=== PATIENT | female | born 1985 ===

== ENCOUNTER 2017-11-30 04:08 | Inpatient (IN) | payer BC ==
[2017-11-30] MEDS ORDERED: Sodium Chloride 0.9% 10 ML Syringe FLUSH PRN (04:26)
[2017-11-30] MEDS ORDERED: Nalbuphine 20 MG/ML 1 ML Syringe IVPUSH PRN (04:26)
[2017-11-30] MEDS ORDERED: Oxytocin/Lactated Ringers 10 UNIT/1,000 ML BAG IV SCH ×2 (04:30→07:30)
[2017-11-30] MEDS: Lactated Ringers 1,000 ML IV SCH ×3 (04:35→06:33)
[2017-11-30] MEDS ORDERED: Ondansetron 4 MG/2 ML SDV IVPUSH PRN (04:57)
[2017-11-30] MEDS ORDERED: ePHEDrine 50 MG/ML SDV IVPUSH PRN (04:57)
[2017-11-30] MEDS ORDERED: diphenhydrAMINE 50 MG/ML SDV IVPUSH PRN (04:57)
[2017-11-30] MEDS ORDERED: fentaNYL 100 MCG/2 ML SDV EPIDUR PRN (04:57)
[2017-11-30] MEDS ORDERED: Bupivacaine/fentaNYL/NS 100 ML Bag EPIDUR SCH (05:00)
--- NOTE | 2017-11-30 05:36 | PCM.PREANE ---
Preanesthetic Assessment - Anesthesia/Transfusion/Family Hx Anesthesia History: Prior Anesthesia Without Reaction Family History of Anesthesia Reaction: No - Review of Systems General: No Symptoms Pulmonary: No Symptoms Cardiovascular: No Symptoms Gastrointestinal: No Symptoms Neurological: No Symptoms Other: Reports: None - Physical Assessment Pulse: 86 O2 Sat by Pulse Oximetry: 98 Respiratory Rate: 22 Blood Pressure: 122/78 Temperature: 36.3 C Weight: 76.204 kg ASA Class: 2 Mental Status: Alert & Oriented x3 Airway Class: Mallampati = 1 Dentition: Reports: Normal Dentition Thyro-Mental Finger Breadths: 3 Mouth Opening Finger Breadths: 3 ROM/Head Extension: Full Lungs: Clear to Auscultation, Normal Respiratory Effort Cardiovascular: Regular Rate, Regular Rhythm - Lab Values: Laboratory Last Values WBC 11.14 K/mm3 (3.98-10.04) H 11/30/17 04:40 RBC 4.43 M/mm3 (3.98-5.22) 11/30/17 04:40 Hgb 12.1 gm/L (11.2-15.7) 11/30/17 04:40 Hct 36.1 % (34.1-44.9) 11/30/17 04:40 MCV 81.5 fl (79.4-94.8) 11/30/17 04:40 MCH 27.3 pg (25.6-32.2) 11/30/17 04:40 MCHC 33.5 g/dl (32.2-35.5) 11/30/17 04:40 RDW Std Deviation 47.2 fL (36.4-46.3) H 11/30/17 04:40 Plt Count 310 K/mm3 (182-369) 11/30/17 04:40 MPV 8.7 fl (9.4-12.3) L 11/30/17 04:40 Neut % (Auto) 68.9 % (34.0-71.1) 11/30/17 04:40 Lymph % (Auto) 22.4 % (19.3-51.7) 11/30/17 04:40 [place] % (Auto) 7.7 % (4.7-12.5) 11/30/17 04:40 Eos % (Auto) 0.4 (0.7-5.8) L 11/30/17 04:40 Baso % (Auto) 0.2 % (0.1-1.2) 11/30/17 04:40 Neut # (Auto) 7.66 K/mm3 (1.56-6.13) H 11/30/17 04:40 Lymph # (Auto) 2.50 K/mm3 (1.18-3.74) 11/30/17 04:40 [place] # (Auto) 0.86 K/mm3 (0.24-0.36) H 11/30/17 04:40 Eos # (Auto) 0.05 K/mm3 (0.04-0.36) 11/30/17 04:40 Baso # (Auto) 0.02 K/mm3 (0.01-0.08) 11/30/17 04:40 - Allergies Allergies/Adverse Reactions: Allergies Allergy/AdvReac Type Severity Reaction Status Date / Time No Known Allergies Allergy Verified 12/30/14 08:11 - Acknowledgements Anesthesia Type Planned: Epidural Pt an Appropriate Candidate for the Planned Anesthesia: Yes Alternatives and Risks of Anesthesia Discussed w Pt/Guardian: Yes Pt/Guardian Understands and Agrees with Anesthesia Plan: Yes PreAnesthesia Questionnaire - Past Health History Medical/Surgical History: Denies Medical/Surgical History - HOME MEDS Home Medications: Home Meds Ferrous Sulfate [Slow Fe] 1 tab PO DAILY 12/30/14 [History] PNV #56/Iron Carb&Aspg/FA/DHA [Ob Complete Petite Softgel] 1 each PO DAILY 12/30 [History] Ibuprofen [Motrin] 600 mg PO Q4H PRN #30 tablet 01/01/15 [Rx] Lanolin [Lansinoh HPA] 1 applic TOP ASDIRECTED PRN #30 tube 01/01/15 [Rx] - CURRENT (IN HOUSE) MEDS Current Meds: Current Medications Diphenhydramine HCl (Benadryl) 25 mg IVPUSH Q6H PRN PRN Reason: Pruritis Ephedrine Sulfate (Ephedrine Sulfate) 5 mg IVPUSH ASDIRECTED PRN PRN Reason: Hypotension Fentanyl (Sublimaze) 100 mcg EPIDUR ONETIME PRN PRN Reason: Pain Last Admin: 11/30/17 05:31 Dose: 100 mcg Fentanyl/Bupivacaine HCl (Fentanyl/Bupivacaine/Ns 2 Mcg-0.125% 100 Ml) 100 ml EPIDUR ASDIRECTED NEDA Lactated Ringer's (Ringers, Lactated) 1,000 mls @ 100 mls/hr IV ASDIRECTED [facility] Last Admin: 11/30/17 04:35 Dose: 999 mls/hr Oxytocin/Lactated Ringer's (Pitocin In Lr 10 Units/1,000 Ml) 10 unit in 1,000 mls @ 500 mls/hr IV .CONTINUOUS NEDA Nalbuphine HCl (Nubain) 10 mg IVPUSH Q2H PRN PRN Reason: pain Ondansetron HCl (Zofran) 4 mg IVPUSH ONETIME PRN PRN Reason: Nausea/Vomiting Sodium Chloride (Saline Flush) 10 ml FLUSH ASDIRECTED PRN PRN Reason: Keep Vein Open
[2017-11-30] MEDS ORDERED: Lanolin 100% Cream 7 GM Tube TOP PRN (07:35)
[2017-11-30] MEDS ORDERED: Acetaminophen 325 MG Tab PO PRN (07:35)
[2017-11-30] MEDS ORDERED: Benzocaine/Menthol 20%-0.5% Spray 56 GM Canister TOP PRN (07:35)
[2017-11-30] MEDS ORDERED: Witch Hazel Medicated Pads 100/Jar TOP PRN (07:35)
[2017-11-30] MEDS ORDERED: Docusate Sodium 100 MG Cap PO PRN (07:35)
--- NOTE | 2017-11-30 07:39 | PCM.SN ---
- Free Text/Narrative Note: Tri is a 31-year-old 6 now para 4024 white female presented in active labor on the morning of 11/30/2017. Upon arrival she was 6 and is dilated and rapidly progressed to complete. During placed for labor and analgesia. She pushed approximately 4 contractions and delivered a viable, dee, female with Apgars of 8 and 9 in an occiput anterior position. There was nuchal cord 2 which was loosed and both loops were reduced over the baby's head. The baby was placed on mom's abdomen. She was dried and bulb suctioned. Cord was eventually clamped 2 and cut by the baby's father. Cord blood was obtained. Pitocin was started immediately after delivery the baby to facilitate increase in uterine tone and decrease likelihood of bleeding. Placenta delivered in a Rice presentation, appeared intact and complete and was discarded per patient desire. The second-degree perineal laceration which had occurred with delivery was repaired with 3-0 Monocryl in a routine fashion. Estimated blood loss was 100 mL. Patient plans to breast-feed. Condition: Good
--- NOTE | 2017-11-30 08:12 | HP ---
DATE OF ADMISSION: 11/30/2017 ADMISSION DIAGNOSIS: A 40 and 5/7th week intrauterine , active labor, advanced cervical dilation. HISTORY OF PRESENT ILLNESS: The patient is a 31-year-old 6, para 3-0-2-3 white female, who was admitted in active labor at 6 cm and has progressed to 9 cm at this time. She was due on 11/25/2017, placing her at 40 and 5/7th weeks gestational age. Her due date was determined by a certain last menstrual period starting on 02/18/2017 and supported by 2 ultrasounds on 05/02/2017 and 07/21/2017. 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 The patient has had menarche at age 12. Cycles every 28 to 30 days and regular. Last menstrual period 02/18/2017 was definite and the patient was not using any control at the time of conception. PAST OBSTETRIC HISTORY: Includes the followin. Miscarriage in 2009 at 6 weeks gestational age. 2. Female infant born on [birth year]2010 at 41 weeks' gestational age after 14 hours of labor - 6 pounds 6 ounces - [facility] - child's name is Casandra. 3. Miscarriage in July 2011 at 8 weeks gestational age. 4. Male born on 05/07/2012 at 38 weeks gestational age after 9 hours of labor - 7 pounds 2 ounces - normal spontaneous vaginal delivery - child's name is Matthew. 5. Female born on [birth year]/30/2014 at 39 and 4/7th weeks gestational age after 12 hours of labor - 7 pounds 3 ounces - - child's name is Agapito Moran. course has been relatively unremarkable. The patient lives in [place] and has been staying in [facility] for the last week. She declined genetic evaluation. She desires epidural in Labor and Delivery. She is group B Strep negative. Induction set up for 12/02/2017 at 0700 hours. She had a normal 1- hour GTT. She plans to breastfeed. The patient was seen for first visit on 05/02/2017 at 10 and 3/7th weeks. She had regular visits during the course of her care. She made normal fundal height growth. Her vital signs were stable throughout the course. Her weight gain was from approximately 122 pounds to 167 pounds for 43-pound weight gain. LABORATORY TESTING: In , shows her blood to be A positive. Antibody screen is negative. Hemoglobin at first visit was 12.9 and platelets were 330,000. She is rubella immune. RPR is nonreactive. Urine culture was negative. Hepatitis B surface antigen and HIV assays were both negative. Gonorrhea and chlamydia were both negative. Her second trimester hemoglobin was low at 10.0 g/dL and platelets were 327,000. Her 1-hour GTT was normal at 122. Group B Strep screen was negative. ALLERGIES: None. CURRENT MEDICATIONS: 1. vitamins 1 daily. 2. Ferrous sulfate 325 mg p.o. twice a day daily. PAST MEDICAL HISTORY: 1. Miscarriage x2. 2. Vaginal delivery x3. PAST SURGICAL HISTORY: [place] teeth extraction in 2006. FAMILY HISTORY: Mother from congestive heart failure at age 45. Father has ALS. He was diagnosed in 2010 and is doing well. One brother is alive and well. Maternal grandmother is secondary to heart failure. Maternal grandfather secondary to kidney failure. Paternal grandmother is alive and healthy, but has obesity. Paternal grandfather is alive and well. SOCIAL HISTORY: The patient is . is Raj Robles. 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 They live in [place], [place]. She does not use any significant amounts of alcohol, drugs, or tobacco. REVIEW OF SYSTEMS: GENERAL: The patient has no complaints. She reported good activity. Has had contractions over the last week, but they have been mild until presently. SKIN: Negative. CARDIOVASCULAR: No chest pain or exercise intolerance. RESPIRATORY: No shortness of breath or infectious symptoms. BREASTS: Changes associated with . The patient plans to breastfeed. GI: Negative. : Contractions at present. No other problems noted. EXTREMITIES/MUSCULOSKELETAL: Occasional edema, otherwise unremarkable. NEUROLOGIC: Negative. PHYSICAL EXAMINATION: GENERAL: The patient is a well-developed, well-nourished, pleasant female, stated age, in no acute distress. VITAL SIGNS: On last evaluation in the clinic on 11/29/2017, her blood pressure was 138/72. Weight was 167 pounds with pregravid weight being 122 pounds. Height is 5 feet 3 inches. Pregravid body mass index was 21.6. SKIN: Warm and dry, without lesions. HEENT, NECK and BACK: Within normal limits. LUNGS: Clear with good breath sounds in all lung gonzalez. CARDIOVASCULAR: Regular rate and rhythm without murmurs. BREASTS: Deferred having been normal at the first visit and not repeated at this time. ABDOMEN: Protuberant with with last fundal height at 39 cm. Baby in vertex presentation by Tim maneuvers. CERVIX: As described above. EXTREMITIES AND NEUROLOGIC: Trace edema, otherwise unremarkable. ASSESSMENT: 1. A 40 and 5/7th week intrauterine , active labor, advanced cervical dilation. 2. Group B Strep screen negative. 3. Epidural for pain control. 4. The patient plans to breastfeed. PLAN: 1. Anticipate normal spontaneous vaginal delivery. 2. Epidural for pain control. 3. Support desire. 4. Rubella titer is negative. We will obtain RPR. CBC prior to epidural. MMODAL /[id number]
--- NOTE | 2017-11-30 08:23 | PCM48HPAN ---
Post Anesthesia Note - EVALUATION WITHIN 48HRS OF ANESTHETIC Vital Signs in Normal Range: Yes Patient Participated in Evaluation: Yes Respiratory Function Stable: Yes Airway Patent: Yes Cardiovascular Function Stable: Yes Hydration Status Stable: Yes Pain Control Satisfactory: Yes Nausea and Vomiting Control Satisfactory: Yes Mental Status Recovered: Yes Pulse Rate: 86 Resp Rate: 22 Temperature: 97.4 F Blood Pressure: 122/78
[2017-11-30] MEDS ORDERED: Prenatal Multivitamin with Calcium/Folic Acid/Iron Tab PO SCH (09:00)
[2017-11-30] MEDS ORDERED: Methylergonovine 0.2 MG/1 ML Amp ONE (09:09)
[2017-11-30] MEDS ORDERED: Oxytocin/Lactated Ringers 10 UNIT/1,000 ML BAG IV ONE (10:21)
[2017-11-30] MEDS: Ibuprofen 600 MG Tab PO PRN ×2 (13:58→21:51)
[2017-11-30] MEDS ORDERED: Bupivacaine 0.25% 10 ML SDV ONE (22:00)
[2017-12-01 02:27] VITALS: BP 112/67
[2017-12-01] MEDS: Ibuprofen 600 MG Tab PO PRN ×2 (04:13→07:13)
[2017-12-01] MEDS ORDERED: Ferrous Sulfate 325 MG Tab PO SCH (07:00)
--- NOTE | 2017-12-01 07:12 | PCM.DCSUM1 ---
Discharge Summary - Hospital Course Free Text/Narrative:: Tri is a 31-year-old 6 now para 4024 white female presented in active labor on the morning of 11/30/2017. Upon arrival she was 6 and is dilated and rapidly progressed to complete. During placed for labor and analgesia. She pushed approximately 4 contractions and delivered a viable, dee, female with Apgars of 8 and 9, a weight of grams, ( pounds, ounces), a length of inches in an occiput anterior position. There was nuchal cord 2 which was loosed and both loops were reduced over the baby's head. The baby was placed on mom's abdomen. She was dried and bulb suctioned. Cord was eventually clamped 2 and cut by the baby's father. Cord blood was obtained. Pitocin was started immediately after delivery the baby to facilitate increase in uterine tone and decrease likelihood of bleeding. Placenta delivered in a Rice presentation, appeared intact and complete and was discarded per patient desire. The second-degree perineal laceration which had occurred with delivery was repaired with 3-0 Monocryl in a routine fashion. Estimated blood loss was 100 mL. Patient plans to breast-feed. patient is done well. Normal voiding, lochia, breast-feeding without problems. Baby has a heart murmur and is being transferred to [facility] in [place]. Patient wishes to be discharged. Condition: Good Diagnosis: Stroke: No - Discharge Data Discharge Date: 12/01/17 Discharge Disposition: Home, Self-Care 01 Condition: Good - Patient Instructions Diet: Regular Diet as Tolerated (Nursing diet was increased calories and calcium is recommended) Activity: As Tolerated (No intercourse or tampons until bleeding resolves) Driving: May Drive Today Showering/Bathing: May Shower Notify Provider of: Fever, Increased Pain, Swelling and Redness, Nausea and/or Vomiting - Discharge Plan *PRESCRIPTION DRUG MONITORING PROGRAM REVIEWED*: No *COPY OF PRESCRIPTION DRUG MONITORING REPORT IN PATIENT [place]: No Home Medications: Home Meds Ferrous Sulfate [Iron] 325 mg PO DAILY 11/30/17 [History] Pnv No.122/Iron/Folic Acid [ Multi Tablet] 1 tab PO DAILY 11/30/17 [ History] Acetaminophen [Tylenol] 650 mg PO Q4H PRN tablet 12/01/17 [Rx] Ibuprofen [Motrin] 600 mg PO Q4H PRN tablet 12/01/17 [Rx] Patient Handouts: Home Care Instructions for Mom, Tips for a Good Latch Referrals: Feroz Rausch MD [Primary Care Provider] - (Return to clinicDr. Rausch2 weeks.) - Discharge Summary/Plan Comment DC Time >30 min.: No Discharge Summary/Plan Comment: Discharge instructions: 1. Discharge home 2. Diet, activity and follow-up discussed with patient. Recommend nursing diet with increased calories and calcium. 3. Precautions given concern increased pain, bleeding, temperature, signs/ symptoms of DVT/PE. 4. Medications per home medication was printed, discussed with and given to the patient. 5. Return to clinic-Dr. Rausch[facility] in 2 weeks. Diagnosis: Term -delivered Condition: Good - Patient Data Vitals - Most Recent: Last Vital Signs Temp 36.7 C 12/01/17 02:14 Pulse 56 L 12/01/17 02:14 Resp 15 12/01/17 02:14 BP 112/67 12/01/17 02:14 Pulse Ox 96 12/01/17 02:14 Weight - Most Recent: 76.521 kg Lab Results - Last 24 hrs: Laboratory Results - last 24 hr 11/30/17 Range/Units 04:40 RPR Non-reactive (NONREACTIVE) Med Orders - Current: Current Medications Acetaminophen (Tylenol) 650 mg PO Q4H PRN PRN Reason: mild pain or fever Benzocaine/Menthol (Dermoplast Pain Relief [place]) 0 gm TOP ASDIRECTED PRN PRN Reason: Perineal Comfort Measure Docusate Sodium (Colace) 100 mg PO BID PRN PRN Reason: Constipation Emollient Ointment (Lansinoh Hpa) 0 gm TOP ASDIRECTED PRN PRN Reason: Sore Nipples Ferrous Sulfate (Ferrous Sulfate) 325 mg PO WITHBREAKFAST NEDA Ibuprofen (Motrin) 600 mg PO Q4H PRN PRN Reason: Mild pain or fever Last Admin: 12/01/17 04:13 Dose: 600 mg Prenat Multivit/[place]/Iron/Folic Ac ( Plus Iron) 1 each PO DAILY NEDA Last Admin: 11/30/17 14:01 Dose: 1 each Witch Breanne (Tucks) 1 pad TOP ASDIRECTED PRN PRN Reason: Hemorrhoid pain Discontinued Medications Diphenhydramine HCl (Benadryl) 25 mg IVPUSH Q6H PRN PRN Reason: Pruritis Ephedrine Sulfate (Ephedrine Sulfate) 5 mg IVPUSH ASDIRECTED PRN PRN Reason: Hypotension Fentanyl (Sublimaze) 100 mcg EPIDUR ONETIME PRN PRN Reason: Pain Last Admin: 11/30/17 05:31 Dose: 100 mcg Fentanyl/Bupivacaine HCl (Fentanyl/Bupivacaine/Ns 2 Mcg-0.125% 100 Ml) 100 ml EPIDUR ASDIRECTED NEDA Last Admin: 11/30/17 05:39 Dose: 100 ml Lactated Ringer's (Ringers, Lactated) 1,000 mls @ 100 mls/hr IV ASDIRECTED NEDA Last Admin: 11/30/17 06:33 Dose: 125 mls/hr Oxytocin/Lactated Ringer's (Pitocin In Lr 10 Units/1,000 Ml) 10 unit in 1,000 mls @ 500 mls/hr IV .CONTINUOUS NEDA Oxytocin/Lactated Ringer's (Pitocin In Lr 10 Units/1,000 Ml) 10 unit in 1,000 mls @ 24 mls/hr IV TITRATE NEDA; Protocol Last Titration: 11/30/17 07:21 Dose: 999 mls/hr Oxytocin/Lactated Ringer's (Pitocin In Lr 10 Units/1,000 Ml) Confirm Administered Dose 10 unit in 1,000 mls @ as directed IV .STK-MED ONE Stop: 11/30/17 10:22 Last Admin: 11/30/17 10:30 Dose: 150 mls/hr Methylergonovine Maleate (Methergine) Confirm Administered Dose 0.2 mg .ROUTE .STK-MED ONE Stop: 11/30/17 09:10 Last Admin: 11/30/17 09:12 Dose: 0.2 mg Nalbuphine HCl (Nubain) 10 mg IVPUSH Q2H PRN PRN Reason: pain Ondansetron HCl (Zofran) 4 mg IVPUSH ONETIME PRN PRN Reason: Nausea/Vomiting Sodium Chloride (Saline Flush) 10 ml FLUSH ASDIRECTED PRN PRN Reason: Keep Vein Open
== END 2017-12-01 07:27 | disposition home or self-care (01) | DRG 560 ==
LOC: JD.OB 04:08 → OBSVTOIN 07:34 → JD.OB 07:34
PROVIDERS: ADMIT Obstetrics & Gynecology; ATTEND Obstetrics & Gynecology
PROC: 10907ZC Drainage of Amniotic Fluid, Therapeutic from Products of Conception, Via Natural or Artificial Opening (ICD-10-PCS; principal; 2017-11-30)
PROC: 0KQM0ZZ Repair Perineum Muscle, Open Approach (ICD-10-PCS; principal; 2017-11-30)
PROC: 6A550ZT Pheresis of Cord Blood Stem Cells, Single (ICD-10-PCS; principal; 2017-11-30)
PROC: 10E0XZZ Delivery of Products of Conception, External Approach (ICD-10-PCS; principal; 2017-11-30)
PROC: 00HU33Z Insertion of Infusion Device into Spinal Canal, Percutaneous Approach (ICD-10-PCS; 2017-11-30)
PROC: 3E0R3BZ Introduction of Anesthetic Agent into Spinal Canal, Percutaneous Approach (ICD-10-PCS; 2017-11-30)
DX: O69.81X0 Labor and delivery complicated by cord around neck, without compression, not applicable or unspecified (principal); O70.1 Second degree perineal laceration during delivery; Z37.0 Single live birth; Z3A.40 40 weeks gestation of pregnancy
CPT/HCPCS: 36415; 51701; 59025; 59300; 59409; 85025; 86592; A9270-GY; J2210; J2590; J3010; J3490; J7120